=== PATIENT | male | born 1940 | race Caucasian/White ===

== ENCOUNTER 2017-03-20 20:43 | Emergency (ER) | payer OTHER, MEDICAID ==
[~2017-03-20] VITALS: Ht 175.3 cm; Wt 81.6 kg
[2017-03-20 20:45] VITALS: BP_SYST 184
[2017-03-20 22:30] VITALS: BP_SYST 170
== END 2017-03-20 22:30 | disposition home or self-care (01) ==
LOC: SED 20:43
DX: M67.432 Ganglion, left wrist (principal); E11.9 Type 2 diabetes mellitus without complications; I10 Essential (primary) hypertension
CPT/HCPCS: 99281

== ENCOUNTER 2018-04-19 18:40 | Inpatient (IN) | payer OTHER, MEDICAID ==
[~2018-04-19] VITALS: Ht 180.3 cm; Wt 83.9 kg
[2018-04-19 18:40] VITALS: BP_SYST 154
[~2018-04-19 18:40] MED LIST: AMOX-426 PO; GLU500 PO; IPRA4AER INH; LIP10 PO; LISI-209 PO; METF1000 PO; METO25TA6 PO; OMEP20CA10 PO; PRO40 PO; SITA100T11 PO; TAMS-11 PO
[2018-04-19 19:52] LABS: BASOPHILS % (AUTO) 0.4 % (0.0-2.0); EOSINOPHILS # (AUTO) 0.2 K/uL (0.0-0.4); EOSINOPHILS % (AUTO) 2.2 % (0.0-4.0); HEMATOCRIT 34.8 % (36-54); HEMOGLOBIN 11.9 g/dL (14.0-18.0); LYMPHOCYTES # (AUTO) 1.5 K/uL (1.0-5.5); LYMPHOCYTES % (AUTO) 19.9 % (20.5-51.5); MEAN CORPUSCULAR HEMOGLOBIN 31 pg (27-31); MEAN CORPUSCULAR HGB CONC 34 % (32-36); MEAN CORPUSCULAR VOLUME 89 fL (79.0-98.0); MONOCYTES # (AUTO) 0.8 K/uL (0.0-1.0); MONOCYTES % (AUTO) 10.6 % (1.7-9.3); NEUTROPHILS # (AUTO) 4.9 K/uL (1.8-7.7); NEUTROPHILS % (AUTO) 66.9 % (40.0-70.0); PLATELET COUNT (AUTO) 204 K/uL (130-430); RED BLOOD CELL COUNT(AUTO) 3.91 MIL/uL (4.2-6.2); RED CELL DISTRIBUTION WIDTH 12.7 % (9.0-15.0); WHITE BLOOD COUNT (AUTO) 7.4 K/uL (4.8-10.8)
[2018-04-19 20:03] LABS: ANION GAP 4 (5-15); CHLORIDE 103 mmol/L (98-107); CREATININE 2.42 mg/dL (0.55-1.30); GLUCOSE 173 mg/dL (70-99); POTASSIUM 5.1 mmol/L (3.5-5.1); SODIUM SERUM 135 mmol/L (136-145); UREA NITROGEN, BLOOD 49 mg/dL (8-21)
[2018-04-19 20:08] LABS: ALANINE AMINOTRANSFERASE 13 U/L (12-78); ALBUMIN 2.5 g/dL (3.4-4.8); ASPARTATE AMINOTRANSFERASE 19 U/L (10-37); TOTAL BILIRUBIN 0.4 mg/dL (0.0-1.0)
[2018-04-19] MEDS ORDERED: ENOXAPARIN SODIUM 80 MG/0.8 ML SYRINGE SUBCUT ONE (20:15)
[2018-04-19] MEDS ORDERED: ASPIRIN 81 MG TAB.CHEW PO ONE (20:15)
[2018-04-19] MEDS ORDERED: NACL 0.9% 1,000 ML IV ONE (20:16)
[2018-04-19] MEDS ORDERED: hydrALAZINE HCL 20 MG/ML VIAL IVP ONE (21:15)
[2018-04-19] MEDS ORDERED: LABETALOL 100 MG/ 20ML VIAL IVP ONE (21:15)
[2018-04-19 21:19] LABS: BILIRUBIN,URINE NEGATIVE (NEGATIVE); BLOOD, URINE 3+ (NEGATIVE); CLARITY/URINE CLEAR (CLEAR); COLOR,URINE YELLOW (YELLOW); GLUCOSE,URINE NEGATIVE (NEGATIVE); KETONES,URINE NEGATIVE (NEGATIVE); LEUKOCYTE ESTERASE ,URINE TRACE (NEGATIVE); NITRITE, URINE NEGATIVE (NEGATIVE); PROTEIN URINE 3+ (NEGATIVE); UROBILINOGEN,URINE 0.2 (0.2-1.0)
[2018-04-19 21:24] LABS: BACTERIA,URINE MODERATE /HPF (None Seen); RBC,URINE >100 /HPF (0-3)
[2018-04-19] MEDS ORDERED: D5W 1,000 ML IV PRN (22:11)
[2018-04-19] MEDS ORDERED: HYDROcodone/ACETAMIN 10-325 MG TAB PO PRN (22:15)
[2018-04-19] MEDS ORDERED: DEXTROSE 50% JECT 50 ML DISP.SYRIN IVP PRN ×4 (22:15)
[2018-04-19] MEDS ORDERED: ACETAMINOPHEN 325 MG TABLET PO PRN (22:15)
[2018-04-19] MEDS ORDERED: HYDROcodone/ACETAMIN 5-325 MG TAB (NORCO/ VICODIN) PO PRN (22:15)
[2018-04-19] MEDS ORDERED: ONDANSETRON HCL 4 MG/2 ML VIAL IVP PRN (22:15)
[2018-04-19] MEDS ORDERED: GLUCOSE 15 GM GEL (in 37.5 GM TUBE) PO PRN ×2 (22:15)
[2018-04-19] MEDS ORDERED: INSULIN REGULAR, HUMAN 100 UNITS/ML, 10 ML VIAL (novoLIN R) SUBCUT PRN (22:15)
[2018-04-19] MEDS ORDERED: LORazepam 2 MG/ML VIAL IVP PRN (22:15)
[2018-04-19 22:22] VITALS: BP_SYST 158
[2018-04-19] MEDS: cloNIDine HCL 0.1 MG TABLET PO PRN (22:41)
[2018-04-19] MEDS: INSULIN REGULAR, HUMAN 100 UNITS/ML, 10 ML VIAL (novoLIN R) SUBCUT PRN (22:43)
[2018-04-20] VITALS (7 sets, daily range): BP systolic 131–148
[2018-04-20] MEDS: NORMAL SALINE 5 ML DISP.SYRIN IVF SCH ×3 (06:18→22:39)
[2018-04-20] MEDS: INSULIN REGULAR, HUMAN 100 UNITS/ML, 10 ML VIAL (novoLIN R) SUBCUT PRN ×2 (06:18→11:42)
[2018-04-20 07:20] LABS: ANION GAP 6 (5-15); CALCIUM 8.4 mg/dL (8.4-11.0); CHLORIDE 105 mmol/L (98-107); GLUCOSE 104 mg/dL (70-99); SODIUM SERUM 137 mmol/L (136-145); UREA NITROGEN, BLOOD 46 mg/dL (8-21)
[2018-04-20 07:30] LABS: BASOPHILS % (AUTO) 0.4 % (0.0-2.0); EOSINOPHILS # (AUTO) 0.1 K/uL (0.0-0.4); EOSINOPHILS % (AUTO) 1.8 % (0.0-4.0); HEMATOCRIT 30.8 % (36-54); LYMPHOCYTES # (AUTO) 1.8 K/uL (1.0-5.5); LYMPHOCYTES % (AUTO) 23.5 % (20.5-51.5); MEAN CORPUSCULAR HEMOGLOBIN 32 pg (27-31); MEAN CORPUSCULAR HGB CONC 36 % (32-36); MEAN CORPUSCULAR VOLUME 90 fL (79.0-98.0); MONOCYTES % (AUTO) 12.8 % (1.7-9.3); NEUTROPHILS # (AUTO) 4.7 K/uL (1.8-7.7); NEUTROPHILS % (AUTO) 61.5 % (40.0-70.0); PHOSPHORUS 5.1 mg/dL (2.7-4.5); PLATELET COUNT (AUTO) 179 K/uL (130-430); RED BLOOD CELL COUNT(AUTO) 3.44 MIL/uL (4.2-6.2); RED CELL DISTRIBUTION WIDTH 12.6 % (9.0-15.0); WHITE BLOOD COUNT (AUTO) 7.6 K/uL (4.8-10.8)
[2018-04-20] MEDS ORDERED: metFORMIN HCL 500 MG TABLET PO SCH (08:00)
[2018-04-20] MEDS ORDERED: IPRATROPIUM/ALBUTEROL SULFATE 3 ML AMPUL.NEB INH ONE (08:00)
[2018-04-20] MEDS ORDERED: PANTOPRAZOLE SODIUM 40 MG TAB PO ONE (08:30)
[2018-04-20] MEDS ORDERED: ENOXAPARIN SODIUM 80 MG/0.8 ML SYRINGE SUBCUT SCH ×2 (09:00)
[2018-04-20] MEDS ORDERED: LISINOPRIL 5 MG TABLET PO SCH (09:00)
[2018-04-20] MEDS: TAMSULOSIN HCL 0.4 MG CAP PO SCH ×2 (09:06→20:44)
[2018-04-20] MEDS: METOPROLOL TARTRATE 25 MG TABLET PO SCH ×2 (09:06→20:44)
[2018-04-20] MEDS: IPRATROPIUM/ALBUTEROL SULFATE 3 ML AMPUL.NEB INH SCH ×2 (13:00→20:41)
[2018-04-20] MEDS: ATORVASTATIN 10 MG TABLET PO SCH (20:44)
[2018-04-21 01:08] VITALS: BP_SYST 147
[2018-04-21] MEDS: IPRATROPIUM/ALBUTEROL SULFATE 3 ML AMPUL.NEB INH SCH ×4 (01:24→19:52)
[2018-04-21] MEDS: PANTOPRAZOLE SODIUM 40 MG TAB PO SCH (06:38)
[2018-04-21] MEDS: NORMAL SALINE 5 ML DISP.SYRIN IVF SCH ×3 (06:40→20:58)
[2018-04-21 07:16] LABS: ANION GAP 5 (5-15); CALCIUM 8.2 mg/dL (8.4-11.0); CHLORIDE 104 mmol/L (98-107); CREATININE 2.68 mg/dL (0.55-1.30); GLUCOSE 110 mg/dL (70-99); PHOSPHORUS 4.9 mg/dL (2.7-4.5); POTASSIUM 5.2 mmol/L (3.5-5.1); SODIUM SERUM 136 mmol/L (136-145); UREA NITROGEN, BLOOD 45 mg/dL (8-21)
[2018-04-21 07:57] LABS: TOTAL IRON BIND. CAPACITY 156 ug/dL (250-450)
[2018-04-21 08:00] VITALS: BP_SYST 147
[2018-04-21] MEDS: METOPROLOL TARTRATE 25 MG TABLET PO SCH ×2 (08:55→20:53)
[2018-04-21] MEDS: TAMSULOSIN HCL 0.4 MG CAP PO SCH ×2 (08:55→20:53)
[2018-04-21] MEDS: ENOXAPARIN SODIUM 30 MG/0.3 ML SYRINGE SUBCUT SCH (08:57)
[2018-04-21] MEDS ORDERED: SODIUM POLYSTYRENE SULFONATE 15 GM/60 ML UDBTL PO ONE (10:15)
[2018-04-21 11:27] VITALS: BP_SYST 119
[2018-04-21] MEDS: INSULIN REGULAR, HUMAN 100 UNITS/ML, 10 ML VIAL (novoLIN R) SUBCUT PRN ×2 (12:25→20:55)
[2018-04-21 15:16] VITALS: BP_SYST 147
[2018-04-21 16:55] LABS: BASOPHILS % (AUTO) 0.3 % (0.0-2.0); EOSINOPHILS # (AUTO) 0.2 K/uL (0.0-0.4); EOSINOPHILS % (AUTO) 2.7 % (0.0-4.0); HEMATOCRIT 31.8 % (36-54); HEMOGLOBIN 10.6 g/dL (14.0-18.0); LYMPHOCYTES % (AUTO) 24.4 % (20.5-51.5); MEAN CORPUSCULAR HEMOGLOBIN 30 pg (27-31); MEAN CORPUSCULAR HGB CONC 33 % (32-36); MEAN CORPUSCULAR VOLUME 90 fL (79.0-98.0); MONOCYTES % (AUTO) 11.7 % (1.7-9.3); NEUTROPHILS # (AUTO) 4.9 K/uL (1.8-7.7); NEUTROPHILS % (AUTO) 60.9 % (40.0-70.0); PLATELET COUNT (AUTO) 194 K/uL (130-430); RED BLOOD CELL COUNT(AUTO) 3.53 MIL/uL (4.2-6.2); RED CELL DISTRIBUTION WIDTH 13.1 % (9.0-15.0); WHITE BLOOD COUNT (AUTO) 8.1 K/uL (4.8-10.8)
[2018-04-21] MEDS ORDERED: BISMUTH SUBSALICYLATE 262 MG TAB.CHEW PO ONE (17:30)
[2018-04-21 20:30] VITALS: BP_SYST 137
[2018-04-21] MEDS: ATORVASTATIN 10 MG TABLET PO SCH (20:52)
[2018-04-22] VITALS: BP_SYST 143
[2018-04-22 04:54] VITALS: BP_SYST 151
[2018-04-22] MEDS: NORMAL SALINE 5 ML DISP.SYRIN IVF SCH ×3 (05:13→21:47)
[2018-04-22] MEDS: cloNIDine HCL 0.1 MG TABLET PO PRN (05:14)
[2018-04-22] MEDS: PANTOPRAZOLE SODIUM 40 MG TAB PO SCH (06:12)
[2018-04-22] MEDS: INSULIN REGULAR, HUMAN 100 UNITS/ML, 10 ML VIAL (novoLIN R) SUBCUT PRN ×3 (06:12→21:43)
[2018-04-22 06:14] VITALS: BP_SYST 147
[2018-04-22 06:45] LABS: ANION GAP 4 (5-15); BASOPHILS % (AUTO) 0.1 % (0.0-2.0); CALCIUM 8.2 mg/dL (8.4-11.0); CHLORIDE 103 mmol/L (98-107); CREATININE 2.47 mg/dL (0.55-1.30); EOSINOPHILS # (AUTO) 0.2 K/uL (0.0-0.4); GLUCOSE 138 mg/dL (70-99); HEMATOCRIT 31.2 % (36-54); HEMOGLOBIN 10.9 g/dL (14.0-18.0); LYMPHOCYTES # (AUTO) 1.2 K/uL (1.0-5.5); LYMPHOCYTES % (AUTO) 15.8 % (20.5-51.5); MEAN CORPUSCULAR HEMOGLOBIN 31 pg (27-31); MEAN CORPUSCULAR HGB CONC 35 % (32-36); MEAN CORPUSCULAR VOLUME 90 fL (79.0-98.0); MONOCYTES # (AUTO) 1.1 K/uL (0.0-1.0); MONOCYTES % (AUTO) 14.5 % (1.7-9.3); NEUTROPHILS # (AUTO) 5.4 K/uL (1.8-7.7); NEUTROPHILS % (AUTO) 67.6 % (40.0-70.0); PHOSPHORUS 4.5 mg/dL (2.7-4.5); PLATELET COUNT (AUTO) 195 K/uL (130-430); POTASSIUM 5.2 mmol/L (3.5-5.1); RED BLOOD CELL COUNT(AUTO) 3.47 MIL/uL (4.2-6.2); RED CELL DISTRIBUTION WIDTH 12.9 % (9.0-15.0); SODIUM SERUM 135 mmol/L (136-145); UREA NITROGEN, BLOOD 39 mg/dL (8-21); WHITE BLOOD COUNT (AUTO) 7.9 K/uL (4.8-10.8)
[2018-04-22] MEDS: IPRATROPIUM/ALBUTEROL SULFATE 3 ML AMPUL.NEB INH SCH ×3 (07:11→19:00)
[2018-04-22] MEDS: METOPROLOL TARTRATE 25 MG TABLET PO SCH (08:40)
[2018-04-22] MEDS: TAMSULOSIN HCL 0.4 MG CAP PO SCH ×2 (08:40→21:37)
[2018-04-22] MEDS: ENOXAPARIN SODIUM 30 MG/0.3 ML SYRINGE SUBCUT SCH (08:44)
[2018-04-22] MEDS ORDERED: FUROSEMIDE 20 MG/2 ML VIAL IVP ONE ×2 (11:15→13:00)
[2018-04-22 12:35] VITALS: BP_SYST 140
[2018-04-22 13:34] LABS: CREATININE 2.47 mg/dL (0.55-1.30)
[2018-04-22 13:35] LABS: PATIENT WEIGHT 185.8 LBS
[2018-04-22 13:36] LABS: CREATININE CLEARANCE,URINE 24.5 ml/min (80-120); CREATININE,URINE 100.8 MG/DL (30-125); TOTAL VOLUME 24HRS,URINE 1000 mL
[2018-04-22 16:04] LABS: CHLORIDE,URINE RANDOM 39 mmol/L (55-125); URINE SODIUM, RANDOM 19 mmol/L (40-220)
[2018-04-22 16:35] VITALS: BP_SYST 133
[2018-04-22 20:00] VITALS: BP_SYST 155
[2018-04-22] MEDS: METOPROLOL TARTRATE 50 MG TABLET PO SCH (21:38)
[2018-04-22] MEDS: ATORVASTATIN 10 MG TABLET PO SCH (21:38)
[2018-04-23 00:31] VITALS: BP_SYST 152
[2018-04-23] MEDS: IPRATROPIUM/ALBUTEROL SULFATE 3 ML AMPUL.NEB INH SCH ×4 (00:55→19:56)
[2018-04-23] MEDS: NORMAL SALINE 5 ML DISP.SYRIN IVF SCH ×3 (06:29→21:58)
[2018-04-23] MEDS: PANTOPRAZOLE SODIUM 40 MG TAB PO SCH (06:29)
[2018-04-23] MEDS: INSULIN REGULAR, HUMAN 100 UNITS/ML, 10 ML VIAL (novoLIN R) SUBCUT PRN ×3 (06:34→20:51)
[2018-04-23 07:15] LABS: ALANINE AMINOTRANSFERASE 12 U/L (12-78); ALBUMIN 2.1 g/dL (3.4-4.8); ANION GAP 7 (5-15); ASPARTATE AMINOTRANSFERASE 16 U/L (10-37); CHLORIDE 101 mmol/L (98-107); CREATININE 2.66 mg/dL (0.55-1.30); GLUCOSE 157 mg/dL (70-99); SODIUM SERUM 136 mmol/L (136-145); TOTAL BILIRUBIN 0.4 mg/dL (0.0-1.0); UREA NITROGEN, BLOOD 42 mg/dL (8-21)
[2018-04-23 07:40] VITALS: BP_SYST 154
[2018-04-23 08:00] VITALS: BP_SYST 154
[2018-04-23] MEDS: TAMSULOSIN HCL 0.4 MG CAP PO SCH ×2 (10:28→20:45)
[2018-04-23] MEDS: METOPROLOL TARTRATE 50 MG TABLET PO SCH ×2 (10:29→20:46)
[2018-04-23] MEDS: FUROSEMIDE 20 MG/2 ML VIAL IVP SCH (10:29)
[2018-04-23] MEDS: ENOXAPARIN SODIUM 30 MG/0.3 ML SYRINGE SUBCUT SCH (10:32)
[2018-04-23 11:18] VITALS: BP_SYST 150
[2018-04-23 15:15] VITALS: BP_SYST 128
[2018-04-23 20:42] VITALS: BP_SYST 148
[2018-04-23] MEDS: ATORVASTATIN 10 MG TABLET PO SCH (20:45)
[2018-04-24 00:01] VITALS: BP_SYST 122
[2018-04-24] MEDS: IPRATROPIUM/ALBUTEROL SULFATE 3 ML AMPUL.NEB INH SCH ×3 (00:41→13:35)
[2018-04-24 06:07] LABS: FOLATE (FOLIC ACID) 6.4 ng/mL (>3.0)
[2018-04-24] MEDS: PANTOPRAZOLE SODIUM 40 MG TAB PO SCH (06:09)
[2018-04-24] MEDS: INSULIN REGULAR, HUMAN 100 UNITS/ML, 10 ML VIAL (novoLIN R) SUBCUT PRN ×3 (06:12→17:33)
[2018-04-24] MEDS: NORMAL SALINE 5 ML DISP.SYRIN IVF SCH ×2 (06:12→14:36)
[2018-04-24 06:41] LABS: BASOPHILS % (AUTO) 0.5 % (0.0-2.0); EOSINOPHILS # (AUTO) 0.2 K/uL (0.0-0.4); EOSINOPHILS % (AUTO) 2.4 % (0.0-4.0); HEMATOCRIT 30.8 % (36-54); HEMOGLOBIN 10.8 g/dL (14.0-18.0); LYMPHOCYTES # (AUTO) 1.7 K/uL (1.0-5.5); LYMPHOCYTES % (AUTO) 23.4 % (20.5-51.5); MEAN CORPUSCULAR HEMOGLOBIN 31 pg (27-31); MEAN CORPUSCULAR HGB CONC 35 % (32-36); MEAN CORPUSCULAR VOLUME 89 fL (79.0-98.0); MONOCYTES # (AUTO) 1.1 K/uL (0.0-1.0); MONOCYTES % (AUTO) 14.7 % (1.7-9.3); NEUTROPHILS # (AUTO) 4.3 K/uL (1.8-7.7); PLATELET COUNT (AUTO) 226 K/uL (130-430); RED BLOOD CELL COUNT(AUTO) 3.45 MIL/uL (4.2-6.2); RED CELL DISTRIBUTION WIDTH 12.4 % (9.0-15.0); WHITE BLOOD COUNT (AUTO) 7.3 K/uL (4.8-10.8)
[2018-04-24 06:55] LABS: ANION GAP 6 (5-15); C-REACTIVE PROTEIN QUANT 6.4 mg/dL (0-0.5); CALCIUM 8.3 mg/dL (8.4-11.0); CHLORIDE 101 mmol/L (98-107); CREATININE 2.56 mg/dL (0.55-1.30); GLUCOSE 128 mg/dL (70-99); PHOSPHORUS 4.8 mg/dL (2.7-4.5); POTASSIUM 4.8 mmol/L (3.5-5.1); SODIUM SERUM 137 mmol/L (136-145); UREA NITROGEN, BLOOD 43 mg/dL (8-21)
[2018-04-24 08:08] LABS: HEPATITIS B SURFACE AG Negative (Negative); HEPATITIS C VIRUS AB <0.1 s/co ratio (0.0-0.9)
[2018-04-24 08:23] LABS: ERYTHROCYTE SEDIMENTATION RATE 66 MM/HR (0-15)
[2018-04-24 09:10] VITALS: BP_SYST 179
[2018-04-24] MEDS: TAMSULOSIN HCL 0.4 MG CAP PO SCH (09:15)
[2018-04-24] MEDS: cloNIDine HCL 0.1 MG TABLET PO PRN (09:17)
[2018-04-24] MEDS: METOPROLOL TARTRATE 50 MG TABLET PO SCH (09:17)
[2018-04-24] MEDS: FUROSEMIDE 20 MG/2 ML VIAL IVP SCH (09:18)
[2018-04-24] MEDS: ENOXAPARIN SODIUM 30 MG/0.3 ML SYRINGE SUBCUT SCH (09:19)
[2018-04-24 12:00] VITALS: BP_SYST 139
[2018-04-24 16:24] VITALS: BP_SYST 125
[2018-04-24 18:40] VITALS: BP_SYST 125
== END 2018-04-24 19:45 | disposition home or self-care (01) | DRG 682 ==
LOC: SED 18:40 → STU 20:37 → SMU 04-20 18:02
PROVIDERS: ADMIT Preventive Medicine Preventive Medicine/Occupational Environmental Medicine; ATTEND Preventive Medicine Preventive Medicine/Occupational Environmental Medicine
DX: N17.0 Acute kidney failure with tubular necrosis (principal); E43 Unspecified severe protein-calorie malnutrition; I13.0 Hypertensive heart and chronic kidney disease with heart failure and stage 1 through stage 4 chronic kidney disease, or unspecified chronic kidney disease; E83.39 Other disorders of phosphorus metabolism; D64.9 Anemia, unspecified; E11.22 Type 2 diabetes mellitus with diabetic chronic kidney disease; E11.65 Type 2 diabetes mellitus with hyperglycemia; E83.51 Hypocalcemia; E87.5 Hyperkalemia; R80.9 Proteinuria, unspecified; R31.9 Hematuria, unspecified; E88.09 Other disorders of plasma-protein metabolism, not elsewhere classified; I50.9 Heart failure, unspecified; K21.9 Gastro-esophageal reflux disease without esophagitis; N18.9 Chronic kidney disease, unspecified; N28.1 Cyst of kidney, acquired; N40.0 Benign prostatic hyperplasia without lower urinary tract symptoms; Z79.01 Long term (current) use of anticoagulants; Z79.84 Long term (current) use of oral hypoglycemic drugs; Z79.899 Other long term (current) drug therapy
CPT/HCPCS: 36415; 71045; 76770; 80048; 80053; 81000-TC; 82272; 82435-TC; 82550-TC; 82570-TC; 82575-TC; 82607; 82728; 82746; 82962; 83540-TC; 83550-TC; 83605; 83735-TC; 83880; 84100-TC; 84156; 84302-TC; 84484; 85025; 85610-TC; 85651-TC; 85730-TC; 86140; 86706; 86803; 87040-TC; 87086; 87340; 93005; 93306; 93971; 94640; 94760; 96361; 96372; 96374; 99285; J1650; J1815; J1940; J2405; J3490; J7030; J7620